=== PATIENT | male | born 1975 | race Caucasian/White ===

== ENCOUNTER 2019-07-21 07:21 | Outpatient (CLI) | payer OTHER | END 2019-07-21 07:30 | disposition home or self-care (01) | LOC: NUCLEAR 07:21 | DX: I20.9 Angina pectoris, unspecified (principal) | CPT/HCPCS: 78452; 93017; A9500 ==

== ENCOUNTER 2024-05-07 06:29 | Day surgery (SDC) | payer OTHER ==
[2024-05-07] MEDS ORDERED: METRONIDAZOLE/SODIUM CHLORIDE 500 MG/100 ML PIGGYBACK IV ONE (12:09)
[2024-05-07] MEDS ORDERED: CEFTRIAXONE SODIUM 2,000 MG VIAL ONE (12:09)
[2024-05-07] MEDS ORDERED: LIDOCAINE HCL 1%/EPINEPHRINE 20ML VIAL IJ ONE (12:24)
[2024-05-07] MEDS ORDERED: BUPIVACAINE HCL/Mpf 0.5% 10ML VIAL ONE (12:24)
[2024-05-07] MEDS ORDERED: DIBUCAINE 30 GM TUBE ONE (12:24)
[2024-05-07] MEDS ORDERED: POVIDONE-IODINE 118 ML BOTT TOP ONE (12:24)
[2024-05-07] MEDS ORDERED: HEMOSTATIC MATRIX WITH THROMBIN KIT TOP ONE (12:25)
[2024-05-07] MEDS ORDERED: TAMSULOSIN HCL 0.4 MG CAP PO ONE ×2 (13:30→14:57)
[2024-05-07] MEDS ORDERED: OXYC1TAB9 PO (13:36)
== END 2024-05-07 17:35 | disposition home or self-care (01) ==
LOC: CIR.AMB 06:29
PROVIDERS: ATTEND Surgery
DX: C21.0 Malignant neoplasm of anus, unspecified (principal); K60.3 Anal fistula; K64.4 Residual hemorrhoidal skin tags; K64.8 Other hemorrhoids; K62.5 Hemorrhage of anus and rectum